=== PATIENT | male | born 1970 | race Caucasian/White ===

== ENCOUNTER 2016-07-27 15:18 | Emergency (ER) | payer SELFPAY ==
[2016-07-27] MEDS ORDERED: Dexamethasone 4 MG TAB ONE (15:54)
== END 2016-07-27 16:04 | disposition home or self-care (01) ==
LOC: MADERS 15:18
DX: M70.21 Olecranon bursitis, right elbow (principal); I10 Essential (primary) hypertension; F17.210 Nicotine dependence, cigarettes, uncomplicated
CPT/HCPCS: 99283; J8540